=== PATIENT | male | born 1960 | race Caucasian/White ===

== ENCOUNTER 2017-06-05 19:30 | Observation (INO) | payer BC ==
[~2017-06-05] VITALS: Ht 180.3 cm; Wt 106.6 kg
--- NOTE | ~2017-06-05 | CR63 ---
[facility]. [facility] A Service of [facility] & [facility] RADIOLOGY TEXT RESULTS PATIENT: GABRIELA HARDY LOCATION: [place] [address] : 58 UNIT #: [id number] AGE: [address]: ANA ROSAMIKE V SEX: M ORDER DR: [id number] [place] [id number] MR#: [id number] Acc #: [id number] NAME: GABRIELA HARDY. : 1960 SEX: M STUDY DATE/TIME: 06/05/2017 20:12 UNIT: SED ROOM: STUDY DESCRIPTION: CR Chest 2 View Attending Physician: Moses Alcaraz M.D. Ordering Physician: Moses Alcaraz M.D. Primary Care Physician: Daisy Dey Aprn MEDICAL IMAGING REPORT This report is preliminary unless electronic signature is present. EXAM 2-view chest INDICATION Chest pain for 1 day. FINDINGS 2 views of the chest compared to 09/18/2012. Heart and mediastinal contours are unchanged. Lungs are hyperinflated. There is some chronic interstitial opacities. No new pulmonary opacities. No pneumothorax or pleural effusion. IMPRESSION No acute cardiopulmonary findings or significant interval change throughout. Dictated by... Thom Espino M.D. THIS IS AN ELECTRONICALLY VERIFIED REPORT Thom Espino M.D. at 06/07/2017 10:33 AM HILARIA/josefina TD: 06/06/2017 08:06 JOB #: [id number] MEDICAL IMAGING REPORT Page 1 of 1
--- NOTE | ~2017-06-05 | CO ---
Unit #: [id number] #: [id number] Patient: GABRIELA HARDY [id number] [address] [place], [place] [address] [id number] I MR#: [id number] NAME: GABRIELA HARDY. ROOM: 471 Age: 56 Sex: M Admission Date: 06/05/2017 : 1960 Attending Physician: Jeremie Agustin M.D. Primary Care Physician: Shelby Carnes Aprn Consultation Date: 06/06/2017 CONSULTATION REPORT JOB NOTE: CC: SHELBY CARNES APRN REASON FOR CONSULTATION Bolus meat impaction of the esophagus. HISTORY OF PRESENT ILLNESS Mr. Hardy is a very pleasant 56-year-old white gentleman. The patient was eating pot roast which got stuck in his esophagus, ended up coming to the emergency room. His partner tried Heimlich maneuver without any help. The patient said he was unable to drink any liquids or swallow any saliva. He is feeling much better today after being admitted overnight and says that he is able to swallow saliva and that he is not spitting it now. He has had similar history of intermittent impaction in the past. The patient was admitted overnight and he is feeling much better now. The meat bolus was stuck in his esophagus around 6:00 p.m. yesterday. The patient has a history of intermittent episodes of bolus meat impaction in the past, but these resolved spontaneously. PAST MEDICAL HISTORY Significant for history of hypertension. PAST SURGICAL HISTORY Included knee surgery and tonsillectomy. HOME MEDICATIONS Include Prinivil. ALLERGIES He has no known drug allergies. FAMILY HISTORY None of colon, pancreatic cancer, or liver disease. SOCIAL HISTORY The patient does not smoke and drinks socially on weekends. He works in the [employer] in [place]. REVIEW OF SYSTEMS Detailed review of organ system does not reveal any recent weight loss. No history of fever, chills, or rigors. No history of headache, seizures, chest pain, or syncope. No history of cough, expectoration, or hemoptysis. No history of dysuria, hematuria, or pyuria. No history of focal seizures or extremity weakness. Rest of the review of organ systems is unremarkable. Unit #: [id number] #: [id number] Patient: GABRIELA HARDY PHYSICAL EXAMINATION GENERAL: He is awake, alert, and oriented, appears comfortable. VITAL SIGNS: Stable with a temperature of 97.9, pulse is 72 per minute and regular, respiratory rate is 18, and blood pressure is 122/81. He weighs about 235 pounds and is overweight. HEENT: He has no pallor, icterus, lymphadenopathy, or peripheral edema. CARDIOVASCULAR: Normal heart sounds. No murmurs. LUNGS: On auscultation reveals normal breath sounds. Good air entry. ABDOMEN: Soft, obese, and nontender. Liver and spleen are not palpable. Bowel sounds normal. DIAGNOSTIC STUDIES LABORATORY RESULTS: Shows a normal CBC and serum chemistry. IMAGING STUDIES: The patient had a chest x-ray earlier, which was normal. CLINICAL IMPRESSION The patient with bolus meat impaction in the esophagus, most likely has an underlying esophageal stricture. An upper endoscopy and a possible dilation are indicated and will be scheduled shortly. The pros and cons of procedure, potential risks, complications including possibility of perforation, bleeding, complication related to sedation were discussed with the patient and he was reassured. Thank you for asking me to see this pleasant gentleman. I appreciate the consult. Dictated by... Lauren Cao/joanna TD: 06/09/2017 00:32 JOB #: [id number] CC: Moy Carrasco M.D. CONSULTATION REPORT Page 1 of 1 X Venu Daigle MD CONSULTATION REPORT
--- NOTE | ~2017-06-05 | OR ---
Unit #: [id number] #: [id number] Patient: GABRIELA HARDY [id number] [address] [place], [place] [address] [id number] I MR#: [id number] NAME: GABRIELA HARDY. ROOM: 471 Date of Procedure: 06/06/2017 Admission Date: 06/05/2017 Surgeon: Venu Daigle M.D. : 1960 Attending Physician: Jeremie Agustin M.D. Primary Care Physician: Daisy Dey, [place] OPERATIVE REPORT PRIMARY CARE PHYSICIAN Daisy Dey. PREOPERATIVE DIAGNOSES Foreign body impaction of the esophagus with a meat bolus. The patient apparently eating some pot roast which got stuck in his esophagus. He has had similar history in the past, never requiring hospitalization. PROCEDURES PERFORMED Upper gastrointestinal endoscopy and biopsy. POSTOPERATIVE DIAGNOSES 1. The patient had distal confluent ulcerative esophagitis. 2. There was also presence of esophageal stricture; however, the area around was quite inflamed and therefore no dilation was performed. 3. Moderate prepyloric antral erosive gastritis. 4. Focal patchy erosive duodenitis involving the duodenal bulb. 5. Rest of examination up to third part of duodenum was normal. A biopsy as obtained the antrum for CLOtest. RECOMMENDATIONS 1. The patient will require to be on PPI therapy. 2. He was started on pantoprazole 40 mg p.o. daily. 3. He was advised to minimize the use of NSAIDs which he uses on a regular daily basis. 4. He will require an elective dilation after the healing of the esophagus in the next 6 to 8 weeks. The patient will call our office to schedule this appointment. SEDATION USED MAC. DESCRIPTION OF PROCEDURE Following detailed explanation of potential risks and complications of an upper endoscopy, namely perforation, bleeding, and complication related to sedation, the patient was brought to GI lab and laid in the left lateral decubitus position. Lubricated tip of the Olympus video upper endoscope was passed through the bite block into the proximal esophagus under direct vision. The entire esophageal mucosa was examined. The patient was noted to have distal confluent ulcerative esophagitis along with early stricture. In addition, there was lot of inflammation and erythema around Unit #: [id number] #: [id number] Patient: GABRIELA HARDY this area. The scope was then advanced into the gastric cavity and the latter was insufflated. Mucosa of the fundus, body, and antrum was examined. The patient was noted to have moderate prepyloric antral erythema erosions and kb ulcers indicating antral gastritis. Pylorus was intubated with visualization of the duodenal bulb. The latter was noted to have focal patchy erosive duodenitis. Second and third part of the duodenum were normal. Upon withdrawal and retroflexion; incisura, cardia, and greater curve was examined and biopsy was obtained from the antrum for CLOtest. The scope was then withdrawn in the distal esophagus. The stricture was again visualized; however, it was decided not to dilate the stricture because of high risk of perforation as there was lot of inflammation around this area. This was to be in the area where the food bolus got stuck and then spontaneously passed. The scope was then withdrawn all the way up to pharynx. No additional findings were noted. The patient tolerated the procedure without any postprocedure complications. Dictated by... Lauren Cao/joanna TD: 06/08/2017 10:56 JOB #: [id number] CC: Moy Carrasco M.D. OPERATIVE REPORT Page 1 of 1 X Venu Daigle MD X PROCEDURE OPERATIVE NOTE
--- NOTE | ~2017-06-05 | HP ---
Unit #: [id number] #: [id number] Patient: GABRIELA HARDY [id number] [address] [place], [place] [address] [id number] I MR#: [id number] NAME: GABRIELA HARDY. ROOM: 471 Age: 56 Sex: M Admission Date: 06/05/2017 : 1960 Attending Physician: Moy Carrasco M.D. Primary Care Physician: Daisy Dey Aprn HISTORY AND PHYSICAL REASON FOR ADMISSION Foreign body, esophagus. HISTORY OF PRESENT ILLNESS The patient is a very pleasant 56-year-old male, prior history of hypertension, who states that he was sitting down to eat dinner. He felt as though he had a piece of roast beef which was actually stuck in his throat since approximately 1800. He had difficulty swallowing. He even stated that he tried the Heimlich maneuver and/or tried to relieve the obstruction by drinking an increased amount of fluid at home. Unfortunately, he was unable to do so. He had a sensation of dysphagia as well as a feeling as if something was stuck in his throat; therefore, presented to [facility]. At [facility], Zofran, Protonix, glucagon as well as liquid trial was done. Unfortunately, foreign body could not be relieved. Thus, a decision was made for transfer for upper GI evaluation from gastroenterology. PAST MEDICAL HISTORY Hypertension. PAST SURGICAL HISTORY 1. Knee surgery. 2. Tonsillectomy. HOME MEDICATIONS Prinivil. ALLERGIES No known drug allergies. FAMILY HISTORY Reviewed and noncontributory or non-pertinent. SOCIAL HISTORY Social alcohol use, primarily on weekends. No tobacco, no illicit drug use. 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 REVIEW OF SYSTEMS Please see HPI. Twelve point otherwise negative except for those positives noted in the HPI. PHYSICAL EXAMINATION VITAL SIGNS: Temperature 98, pulse 84, respiratory rate 18, blood pressure 123/88. Unit #: [id number] #: [id number] Patient: GABRIELA HARDY GENERAL APPEARANCE: The patient is a very pleasant 56-year-old male sitting up comfortably, in no acute distress. HEAD EXAM: Atraumatic, normocephalic. EAR EXAM: Tympanic membranes do not reveal any erythema or injection. NECK EXAM: Supple. CVS: S1, S2, without murmur. RESPIRATORY: Clear. GI/ABDOMEN: Nontender, nondistended. EXTREMITIES: Lower extremity exam - no evidence of any lower extremity edema. No calf tenderness. NEUROLOGICAL EXAM: The patient is A and O x3. No evidence of any focal nerve deficits. DIAGNOSTIC STUDIES Outside laboratory studies/imaging studies include - IMAGING: Chest x-ray - no acute abnormalities. INITIAL ADMISSION DIAGNOSES 1. Foreign body, esophagus. 2. History of hypertension. 3. Occasional heartburn per patient - [id number] Zantac only. PLAN Admission to observation bed Med/Surg floor. GI consultation. NPO status. Blood pressure management with p.r.n. IV medications as needed. Currently blood pressure stable. Further hospital course to follow. Plans have been reviewed with patient as well as his present at bedside in detail. Patient is Full Code. Dictated by Lauren Saldivar/josefina TD: 06/06/2017 05:13 JOB #: [id number] HISTORY AND PHYSICAL Page 1 of 1 X Moy Carrasco MD X HISTORY AND PHYSICAL
[~2017-06-05 19:30] MED LIST: NORCO 5/325 TAB1 TAB PO
[2017-06-05] MEDS ORDERED: PRINIVIL20 M1 PO (19:50)
[2017-06-06] MEDS ORDERED: PROTONIX PO (20:37)
== END 2017-06-06 21:00 | disposition home or self-care (01) | DRG 382 ==
LOC: SED 19:30 → CEDOF 22:51 → C4C 22:51 → SED 22:51 → C4C 23:12 → CEDOF 23:12 → C4C 23:50 → UNDODEPER 06-06 22:49
DX: K22.10 Ulcer of esophagus without bleeding (principal); K22.2 Esophageal obstruction; K29.00 Acute gastritis without bleeding; K29.80 Duodenitis without bleeding; I10 Essential (primary) hypertension; Z79.899 Other long term (current) drug therapy; Z98.890 Other specified postprocedural states
CPT/HCPCS: 71020; 87077; 96361; 96374; 96375; 96376; 99284; C9113; G0378; J1610; J2250; J2405; J3010